=== PATIENT | male | born 1995 | race Caucasian/White ===

== ENCOUNTER 2017-02-23 10:13 | Emergency (ER) | payer SELFPAY ==
[2017-02-23 11:09] VITALS: BP 138/72
--- NOTE | 2017-02-23 11:33 | RAD ---
Indication: Indication: Left wrist injury with deformity 3 views of the left wrist demonstrates comminuted fracture of the distal radius with dorsal angulation. Fracture of the ulnar styloid process is also present. IMPRESSION: Comminuted fracture distal radius with slight dorsal angulation of fracture of the ulnar styloid process.
--- NOTE | 2017-02-23 11:42 | UC ---
Upper Extremity HPI - HPI Summary HPI Summary: Fall from roof earlier today. denies any other injury and specifically denies headache, headinjury, neck or back pain, lower extremity pain, chest or abd pain. - History of Current Complaint Chief Complaint: UCUpperExtremity Stated Complaint: S/P FALL LEFT WRIST INJURY Time Seen by Provider: 02/23/17 11:06 Hx Obtained From: Patient ?: No Onset/Duration: Sudden Onset Severity Initially: Moderate Severity Currently: Moderate Location Of Pain: Is Discrete @ - distal radius. Aggravating Factor(s): Movement Alleviating Factor(s): Nothing Associated Signs And Symptoms: Positive: Swelling. Negative: Redness, Bruising , Fever, Numbness/Tingling - Allergies/Home Medications Allergies/Adverse Reactions: Allergies Allergy/AdvReac Type Severity Reaction Status Date / Time No Known Allergies Allergy Verified 02/23/17 11:09 Home Medications: Home Medications NK [No Home Medications Reported] 02/23/17 [History Confirmed 02/23/17] PMH/Surg Hx/FS Hx/Imm Hx Endocrine History Of: Denies: Diabetes - Surgical History Surgical History: None - Family History Known Family History: Negative: Diabetes - Social History Alcohol Use: None Substance Use Type: None Smoking Status (MU): Never Smoked Tobacco Review of Systems All Other Systems Reviewed And Are Negative: Yes Physical Exam Triage Information Reviewed: Yes Appearance: Well-Appearing, No Pain Distress, Well-Nourished Vital Signs: Initial Vital Signs Temp 98.8 F 02/23/17 11:06 Pulse 65 02/23/17 11:06 Resp 14 02/23/17 11:06 BP 138/72 02/23/17 11:06 Pulse Ox 98 02/23/17 11:06 Vital Signs Reviewed: Yes Eyes: Positive: Conjunctiva Clear. Negative: Conjunctiva Inflamed ENT Exam: Normal ENT: Positive: Normal ENT inspection, Hearing grossly normal, Pharynx normal, Pharyngeal erythema Dental Exam: Normal Neck exam: Normal Neck: Positive: Supple, Nontender, No Lymphadenopathy. Negative: Nuchal Rigidity Respiratory Exam: Normal Respiratory: Positive: Chest non-tender, Lungs clear, Normal breath sounds, No respiratory distress, No accessory muscle use. Negative: Respiratory distress, Decreased breath sounds, Accessory muscle use, Crackles, Rhonchi, Stridor, Wheezing Cardiovascular Exam: Normal Cardiovascular: Positive: RRR, No Murmur, Pulses Normal - left radial pulse intact. Abdominal Exam: Normal Abdomen Description: Positive: Nontender, No Organomegaly, Soft Bowel Sounds: Positive: Present Musculoskeletal Exam: Normal Musculoskeletal: Positive: Strength Intact, ROM Intact, No Edema Neurological Exam: Normal Neurological: Positive: Alert, Muscle Tone Normal. Negative: Fatigued Psychological Exam: Normal Skin Exam: Normal Skin: Negative: rashes Upper Extremity Course/Dx - Course Course Of Treatment: distal radius and ulna fractures. Dr. Quinteros accepts the patient to be evaluated now in his outpatient office. WE will splint with wrist splint for the 1min walk to his office next door. Pt agrees. No other symptoms or signs of pain. no elbow, forearm, finger, shoulder or humerus pain/ tenderness. - Differential Dx/Diagnosis Differential Diagnosis/HQI/PQRI: Arthritis, Burn, Bursitis, Contusion, Fracture (Open), Fracture (Closed), Hematoma, Laceration, Localized Burn, Septic Arthritis, Strain, Sprain Provider Diagnoses: distal radius and distal ulna fx. Discharge - Discharge Plan Condition: Good Disposition: HOME Patient Education Materials: Wrist Fracture in Adults (ED) Referrals: No Primary Care Phys,NOPCP [Primary Care Provider] - Deon Quinteros MD [Medical Doctor] -
== END 2017-02-23 11:50 | disposition home or self-care (01) ==
LOC: UCCORT 10:13
DX: S52.502A Unspecified fracture of the lower end of left radius, initial encounter for closed fracture (principal); S52.612A Displaced fracture of left ulna styloid process, initial encounter for closed fracture; W13.2XXA Fall from, out of or through roof, initial encounter; Y93.9 Activity, unspecified; Y92.9 Unspecified place or not applicable
CPT/HCPCS: 99202; G0463